=== PATIENT | female | born 1980 | race Two or more races ===

== ENCOUNTER → 2018-12-16 | Outpatient (CLI) | payer OTHER | END | disposition home or self-care (01) | LOC: LAB SALUS 08:13 | DX: Z13.220 Encounter for screening for lipoid disorders (principal); Z11.59 Encounter for screening for other viral diseases; Z13.1 Encounter for screening for diabetes mellitus; Z11.4 Encounter for screening for human immunodeficiency virus [HIV]; Z72.51 High risk heterosexual behavior; Z11.3 Encounter for screening for infections with a predominantly sexual mode of transmission; Z00.8 Encounter for other general examination ==

== ENCOUNTER → 2019-01-17 | Outpatient (CLI) | payer OTHER | END | disposition home or self-care (01) | LOC: SONOGRAMA 09:13 → MAMO-SONO 09:15 | DX: R10.13 Epigastric pain (principal); R19.4 Change in bowel habit ==

== ENCOUNTER 2023-11-19 18:29 | Emergency (ER) | payer OTHER ==
[~2023-11-19] VITALS: Ht 162.6 cm; Wt 77.1 kg
[2023-11-19] MEDS ORDERED: KETOROLAC TROMETHAMINE 30 MG VIAL IM STA (21:15)
[2023-11-19] MEDS ORDERED: KETOROLAC TROMETHAMINE 30 MG VIAL ONE (21:39)
== END 2023-11-19 21:46 | disposition home or self-care (01) ==
LOC: ER 18:31
DX: H66.92 Otitis media, unspecified, left ear (principal)